=== PATIENT | female | born 1960 | race Caucasian/White ===

== ENCOUNTER → 2019-11-18 14:09 | Outpatient (CLI) | payer BC, SELFPAY ==
--- NOTE | ~2019-11-18 | MM_ITS ---
EXAMINATION: MM screening kt BI w dinh HISTORY: Screening TECHNIQUE: Craniocaudal and mediolateral oblique 3-D tomosynthesis images were obtained and synthetic 2-D images were generated. CAD analysis was submitted and interpreted. COMPARISON: Comparison to multiple prior studies sequentially, with oldest reviewed study dated 04/03. BREAST PARENCHYMAL COMPOSITION: There are scattered areas of fibroglandular density. FINDINGS: There is no evidence of suspicious mass, calcification, or architectural distortion to sugg est malignancy in either breast. There has been no suspicious interval change. IMPRESSION: 1. No mammographic evidence of malignancy. 2. Recommend routine screening mammography in one year. BI-RADS Category 1: Negative Reviewed, dictated and finalized at location A.
== END ==
PROVIDERS: PCP Family Medicine; Visit Provider Family Medicine
DX: Z12.31 Encounter for screening mammogram for malignant neoplasm of breast (principal)
CPT/HCPCS: 77063; 77067

== ENCOUNTER 2020-11-06 17:08 | Emergency (ER) | payer BC, SELFPAY ==
--- NOTE | ~2020-11-06 | XR_ITS ---
EXAMINATION: XR abdomen obstructive series DATE: 11/06/2020 19:55 INDICATION: Constipation, epigastric pain TECHNIQUE: Upright and supine views of the abdomen were obtained. COMPARISON: None. FINDINGS: There is no free intraperitoneal gas or evidence of bowel obstruction. The lung bases are c lear. A moderate volume of colonic stool is present. Phleboliths are noted in the pelvis. There is mi ld osteoarthritis of the hips. IMPRESSION: 1. Nonobstructive bowel gas pattern. Reviewed, dictated and finalized at location A.
--- NOTE | ~2020-11-06 | CT_ITS ---
EXAMINATION: CT abdomen pelvis w con INDICATION: Constipation, leukocytosis TECHNIQUE: Computed tomographic images of the abdomen and pelvis were obtained after the administrati on of 100 cc of Omnipaque 350 intravenous contrast. The dose-length product (DLP) was 540.61 mGy-cm. Automated exposure control and iterative reconstruction technique were employed. COMPARISON: None available FINDINGS: The lung bases are clear. The heart size is normal. The liver, spleen, pancreas, gallbladde r, and adrenal glands are normal. There is a 2.8 cm cyst of the right kidney. The left kidney is unre markable. No pathologically enlarged abdominal or pelvic lymph nodes are identified. There is no free intraperitoneal gas or evidence of bowel obstruction. There is a moderate volume of colonic stool. T here is questionable inflammatory change of the rectum and anus. A fat-containing umbilical hernia is noted. There are bilateral L5 pars defects with grade 1 anterolisthesis of L5 on S1. The appendix is normal. IMPRESSION: 1. Possible inflammatory change of the rectum and anus. Correlate for proctitis. Reviewed, dictated and finalized at location A. IMPRESSION: 1. Possible inflammatory change of the rectum and anus. Correlate for proctitis .
[2020-11-06 17:38] VITALS: BP 128/88; PULSE 88; RESP 18; TEMP 36.2; O2SAT 100
[2020-11-06 20:08] LABS: Basophils Absolute Auto 0.1 K/mm3 (0.0-0.1); Basophils Percent Auto 0.4 % (0.2-1.2); Eosinophils Percent Auto 0.1 % (0-4.4); Hematocrit 42.2 % (37.0-47.0); Hemoglobin 14.3 g/dL (12.0-15.0); Immature Granulocyte Absolute 0.06 K/mm3 (0.00-0.031); Immature Granulocyte Percent A 0.3 % (0-0.5); Lymphocytes Percent Auto 9.2 % (18.3-44.2); Mean Corpuscular HGB Conc 33.9 g/dl (32-36); Mean Corpuscular Hemoglobin 31.2 pg (26-34); Mean Corpuscular Volume 92.1 fl (80-100); Mean Platelet Volume 9.8 fl (7.4-10.4); Monocytes Absolute Auto 0.8 K/mm3 (0.1-0.6); Monocytes Percent Auto 4.3 % (2.6-8.5); Neutrophils Absolute Auto 14.9 K/mm3 (1.3-6.7); Neutrophils Percent Auto 85.7 % (45.5-73.1); Platelet Count Result 278 k/mm3 (150-375); Red Blood Count 4.58 M/mm3 (4.2-5.4); Red Cell Distribution Width 13.5 % (11.5-14.5); White Blood Count 17.4 K/mm3 (4.5-10.0)
[2020-11-06] MEDS: SODIUM CHLORIDE 0.9% IV 1,000 ML 999 ML IV CONT (20:43)
[2020-11-06 20:46] LABS: Anion Gap 10 mmol/L (8-16); Blood Urea Nitrogen 17 mg/dL (7-17); Calcium 9.8 mg/dL (8.4-10.2); Carbon Dioxide 26 mmol/L (22-30); Chloride 107 mmol/L (98-107); Estimated CRCL calculation 60 ml/min; Estimated Glomerular Filt Rate > 60; Glucose 120 mg/dL (65-110); Potassium 3.8 mmol/L (3.4-5.0); Sodium 143 mmol/L (137-145)
[2020-11-06 20:57] LABS: Estimated CRCL calculation 79 ml/min; Estimated Glomerular Filt Rate > 60
[2020-11-07 00:15] VITALS: BP 122/80; PULSE 78; RESP 18; O2SAT 99
[2020-11-07] MEDS: MAGNESIUM CITRATE 300 ML BTL 150 ML PO (00:40)
--- NOTE | 2020-11-07 00:40 | ED.ABDPAIN ---
HPI - Abdominal Pain General Chief Complaint: Abdominal Pain Stated Complaint: constipation x 7 days Time Seen by Provider: 11/06/20 19:23 Source: patient Mode of arrival: ambulatory Limitations: no limitations History of Present Illness HPI narrative: 59-year-old female past medical history of hypertension arrives complaining of constipation for the last 6 days. Patient has been undergoing a lot of family stress and has not been using her usual bowel regimen and now she has been unable to go to the bathroom for approximately 6 days and is having lower abdominal pain. Pain is in the lower abdomen cramping, worse with straining improves with nothing. Patient tried suppositories without relief at home. No fever, no vomiting, no nausea, no history of inguinal hernias or ventral hernias. No dysuria, no hematuria no flank pain. The last time this happened was a few years ago. No other complaints. Related Data Allergies Allergy/AdvReac Type Severity Reaction Status Date / Time Sulfa (Sulfonamide Allergy Unknown Rash Verified 11/06/20 19:16 Antibiotics) lisinopril AdvReac Mild cough Verified 11/06/20 19:16 morphine AdvReac Unknown NAUSEA Verified 11/06/20 19:16 Review of Systems Review of Systems: CONSTITUTIONAL: Denies fever, chills, or sweats. EYES: Denies visual changes, redness, or discharge. ENT: Denies rhinorrhea, congestion, sore throat, or otalgia. CARDIOVASCULAR: Denies chest pain, palpitations, or edema. RESPIRATORY: Denies cough or dyspnea. GASTROINTESTINAL: lower abdominal pain and constipation denies nausea, vomiting, or diarrhea. GENITOURINARY: Denies dysuria or hematuria. SKIN: Denies rash or itching. MUSCULOSKELETAL: Denies back pain, joint pain, or myalgia. NEUROLOGIC: Denies headache, numbness, or weakness. PSYCHIATRIC: Denies anxiety or depression. [facility] Family History Family History Mother Hypertension Cerebrovascular accident Sibling Hypertension Cerebrovascular accident Family history of lung cancer Father Cerebrovascular accident Social History Social History Years smoked: 25 Smoking status: Former smoker Tobacco type: cigarettes Second hand tobacco smoke exposure: No Smoking end date: 02/05/03 Alcohol intake: current Alcohol use details: social drinker Substance use: never Substance use type: does not use Gender identity (if verbalized by the patient): Female Exam Narrative: General: alert, afebrile, answering all questions Head: normocephalic, atraumatic ENT: moist mucous membranes, oropharynx patent, no rhinorrhea Neck: supple, trachea midline, no JVD Chest: equal chest rise bilaterally, no chest wall trauma Lungs: clear to auscultation bilaterally, respirations unlabored CV: regular rate, no GERALDINE B, calf size equal bilaterally Abd: soft, mild bilateral lower quadrant tenderness, no rebound, no gaurding, negative Moncada's : no CVA tenderness B, bladder non-distended Back: no lumbar bony tenderness. paraspinal muscles without spasm EXT: no deformity noted, moving all extremities equally Skin: no rashes, no pallor, no jaundice Neuro: alert, oriented x 3; CN 2-12 grossly intact, no gross focal deficits Psych: affect appropriate, though content normal Course Course Emergency Course: Patient with elevated WBCs, CT abdomen pelvis with possible proctitis, patient was disimpacted without difficulty had a large amount of stool with good relief. Patient will be sent home with Bladimir and Demetrice. She will return if fever, intractable vomiting, inability tolerate p.o. fluids or medications or any concern Vital Signs Vital signs: Vital Signs Temperature 36.2 C L 11/06/20 17:38 Pulse Rate 88 11/06/20 17:38 Respiratory Rate 18 11/06/20 17:38 Blood Pressure 128/88 11/06/20 17:38 Pulse Oximetry 100 11/06/20 17:38 Temperature 36.2 C L
[2020-11-07 01:31] VITALS: BP 140/70; PULSE 74; RESP 18; O2SAT 98
== END 2020-11-07 01:31 | disposition home or self-care (01) ==
PROVIDERS: Emergency Provider Emergency Medicine; PCP Family Medicine
DX: K62.89 Other specified diseases of anus and rectum (principal); K59.00 Constipation, unspecified; Z87.891 Personal history of nicotine dependence
CPT/HCPCS: 36415; 74019; 74177; 80048; 85025; 96360; 99284; A9270; J7030; Q9967